=== PATIENT | female | born 1970 | race Caucasian/White ===

== ENCOUNTER 2018-11-19 18:48 | Emergency (ER) | payer OTHER ==
[~2018-11-19] VITALS: Ht 165.1 cm; Wt 88.1 kg
[2018-11-19 18:54] VITALS: Ht 165.1 cm; Wt 88.1 kg
--- NOTE | 2018-11-19 21:02 | ERD ---
ER Documentation Chief Complaint Chief Complaint cough x 1 month; seen by PMD dx viral HPI 48-year-old otherwise healthy female is here complaining of cough that she states she has had for over 3 months. She is tried several [id number] medications which relieve her symptoms temporarily but they always come back. She has had no fever. No hemoptysis. No night sweats or unplanned weight loss. No vomiting. ROS All systems reviewed and are negative except as per history of present illness. Medications Home Meds Active Scripts Prednisone* (Prednisone*) 20 Mg Tab, 60 MG PO DAILY for 5 Days, TAB Prov:JACOB AMARAL PA-C 11/19/18 Azithromycin* (Zithromax*) 250 Mg Tablet, 250 MG PO .ZPACK DIRECTED, #6 TAB TAKE 500 MG (2 TABS) THE FIRST DAY THEN 250 MG (1 TAB) DAYS 2-5 Prov:JACOB AMARAL PA-C 11/19/18 Allergies Allergies: Coded Allergies: No Known Allergy (Unverified , 11/19/18) PMhx/Soc Medical and Surgical Hx: pt denies Medical Hx, pt denies Surgical Hx Hx Alcohol Use: No Hx Substance Use: No Hx Tobacco Use: No Smoking Status: Never smoker FmHx Family History: No diabetes Physical Exam Vitals Vital Signs Date Temp Pulse Resp B/P (MAP) Pulse Ox O2 O2 Flow FiO2 Time Delivery Rate 11/19/18 97.1 91 20 162/89 98 18:54 (113) Physical Exam INITIAL VITAL SIGNS: Reviewed by me GENERAL: Awake, alert and oriented x 4, well appearing, nontoxic, speaking in full sentences. No acute distress HEAD: Atraumatic NECK: Supple. No masses. Full range of motion. No meningismus. No midline tenderness. EYES: EOMI. PERRL. NOSE: Normal nose. THROAT: No tonilar erythema or edema. No exudates. Uvula midline. No kissing tonsils. RESPIRATORY: Clear to auscultation bilaterally. Symmetric chest wall rise. No wheezing or rales. No accessory muscle use. CV: Regular rate and rhythm. No murmurs, rubs, or gallops. Procedures/MDM This patient has chronic cough. Her vitals are stable she is afebrile her lungs are clear. Chest x-ray ordered and is negative. Given lengthy durations I will still give her Z-Bryan as well as a short course of prednisone. Patient counseled regarding my diagnostic impression and care plan. Prior to discharge all questions answered. Pt agrees with treatment plan and understands strict return precautions. Pt is instructed to follow up with primary care provider within 24- 48 hours. Precautionary instructions provided including instructions to return to the ER if not improving or for any worsening or changing symptoms or concerns. Departure Diagnosis: Primary Impression: Bronchitis Condition: Stable JACOB AMARAL PA-C Nov 19, 2018 21:02
[2018-11-19] MEDS ORDERED: PRED20TA PO (21:31)
[2018-11-19] MEDS ORDERED: AZIT250T PO (21:31)
[2018-11-19 21:46] VITALS: BP 140/83; PULSE 86; RESP 16
== END 2018-11-19 21:47 | disposition home or self-care (01) ==
LOC: FTE 18:48
DX: J40 Bronchitis, not specified as acute or chronic (principal)
CPT/HCPCS: 71045; Z7502